=== PATIENT | female | born 1990 | race Caucasian/White ===

== ENCOUNTER 2018-01-13 13:55 | Emergency (ER) | payer MEDICAID ==
[~2018-01-13] VITALS: Ht 157.5 cm; Wt 82.0 kg
[~2018-01-13 13:55] MED LIST: DIAZ2TAB PO; NAPR-679 PO
[2018-01-13 14:12] VITALS: BP 131/85
[2018-01-13 15:03] LABS: BASOPHILS % 0.4 % (0.0-2.0); EOSINOPHILS % 0.7 % (0.0-5.0); HEMATOCRIT. 41.1 % (36.0-48.0); HEMOGLOBIN. 14.1 g/dL (12.0-16.0); LYMPHOCYTES % 33.1 % (20.0-50.0); MEAN CORPUSCULAR VOLUME 84.7 fL (81.0-99.0); MEAN PLATELET VOLUME 8.7 fl (7.4-10.4); MONOCYTES % 3.4 % (2.0-8.0); NEUTROPHILS % 62.4 % (40.0-76.0); PLATELET 292 x1000/uL (130-400); RED BLOOD CELL COUNT 4.86 mill/uL (4.2-5.4); RED CELL DISTRIBUTION WIDTH 14.9 % (11.6-14.6)
[2018-01-13 15:09] LABS: CHLORIDE 103 mEq/L (98-107)
[2018-01-13 16:27] LABS: CLARITY URINE CLOUDY (CLEAR); COLOR URINE DARK YELLOW (YELLOW); KETONES URINE 4+ (NEGATIVE); LEUKOCYTE ESTERASE URINE 2+ (NEGATIVE); NITRITE URINE POSITIVE (NEGATIVE); OCCULT BLOOD URINE 3+ (NEGATIVE); PH URINE 5.5 (4.5-8.0); PROTEIN URINE 1+ (NEGATIVE)
== END 2018-01-13 19:50 | disposition left against medical advice (07) ==
LOC: ER 16:06
DX: N93.9 Abnormal uterine and vaginal bleeding, unspecified (principal)
CPT/HCPCS: 36415; 80053; 81003; 85025; 87086; 99284

== ENCOUNTER 2018-02-13 21:56 | Emergency (ER) | payer MEDICAID ==
[~2018-02-13] VITALS: Ht 157.5 cm; Wt 72.0 kg
[2018-02-14] MEDS ORDERED: CYCLOBENZAPRINE 10MG TABLET PO ONE (02:15)
[2018-02-14] MEDS ORDERED: KETOROLAC 60MG/2ML VIAL IM ONE (02:15)
[2018-02-14 04:00] VITALS: BP 110/57
== END 2018-02-14 04:20 | disposition home or self-care (01) ==
LOC: ER 21:56
DX: S05.11XA Contusion of eyeball and orbital tissues, right eye, initial encounter (principal); E11.9 Type 2 diabetes mellitus without complications; Y08.89XA Assault by other specified means, initial encounter; Y93.89 Activity, other specified; Y92.89 Other specified places as the place of occurrence of the external cause; Y99.8 Other external cause status; Z90.49 Acquired absence of other specified parts of digestive tract
CPT/HCPCS: 99283; J1885; Z7610

== ENCOUNTER 2020-02-21 18:19 | Emergency (ER) | payer MEDICAID ==
[~2020-02-21] VITALS: Ht 157.5 cm; Wt 68.0 kg
[2020-02-21] MEDS ORDERED: SODIUM CHLORIDE 0.9% 1,000 ML IV ONE (20:12)
[2020-02-21] MEDS ORDERED: FAMOTIDINE 20MG/2ML VIAL IV STA (20:12)
[2020-02-21] MEDS ORDERED: ONDANSETRON HCL 4MG/2ML INJ IV STA (20:12)
[2020-02-21 20:53] LABS: BASOPHILS % 0.9 % (0.0-2.0); EOSINOPHILS % 2.4 % (0.0-5.0); HEMOGLOBIN. 14.9 g/dL (12.0-16.0); LYMPHOCYTES % 38.8 % (20.0-50.0); MEAN CORPUSCULAR HEMOGLOBIN 31.5 pg (28.0-32.0); MEAN CORPUSCULAR VOLUME 90.9 fL (81.0-99.0); MEAN PLATELET VOLUME 9.1 fl (7.4-10.4); MONOCYTES % 3.5 % (2.0-8.0); NEUTROPHILS % 54.4 % (40.0-76.0); PLATELET 302 x1000/uL (130-400); RED BLOOD CELL COUNT 4.73 mill/uL (4.2-5.4); RED CELL DISTRIBUTION WIDTH 14.1 % (11.6-14.6)
[2020-02-21 20:55] LABS: CHLORIDE 103 mEq/L (98-107)
[2020-02-21 21:01] LABS: PROTHROMBIN TIME 10.4 sec (9.6-11.0)
[2020-02-21 21:02] LABS: ETHANOL BLOOD < 10 mg/dL
[2020-02-21 21:24] LABS: HCG SCREEN NEGATIVE
[2020-02-21 22:02] VITALS: BP 131/80
[2020-02-21 23:05] LABS: CLARITY URINE CLOUDY (CLEAR); COLOR URINE YELLOW (YELLOW); KETONES URINE 1+ (NEGATIVE); LEUKOCYTE ESTERASE URINE 1+ (NEGATIVE); NITRITE URINE POSITIVE (NEGATIVE); OCCULT BLOOD URINE NEGATIVE (NEGATIVE); PH URINE 5.5 (4.5-8.0); PROTEIN URINE NEGATIVE (NEGATIVE); SPECIFIC GRAVITY URINE 1.023 (1.005-1.030); UROBILINOGEN URINE 0.2 E.U./dL (0.2-1.0)
[2020-02-21 23:38] LABS: *AMPHETAMINES SCREEN URINE NEGATIVE (NEGATIVE); *BARBITURATES SCREEN URINE NEGATIVE (NEGATIVE); *BENZODIAZEPINES SCREEN URINE NEGATIVE (NEGATIVE); *COCAINE SCREEN URINE NEGATIVE (NEGATIVE); METHADONE URINE SCREEN NEGATIVE (NEGATIVE); OPIATES URINE SCREEN NEGATIVE (NEGATIVE)
[2020-02-21 23:39] LABS: CANNABINOID URINE SCREEN NEGATIVE (NEGATIVE); PHENCYCLIDINE URINE SCREEN NEGATIVE (NEGATIVE)
[2020-02-22] MEDS ORDERED: NITROFURANTOIN 100MG M/M CAPSULE PO ONE (00:30)
== END 2020-02-22 01:16 | disposition home or self-care (01) ==
LOC: ER 18:19
DX: N39.0 Urinary tract infection, site not specified (principal); R03.0 Elevated blood-pressure reading, without diagnosis of hypertension
CPT/HCPCS: 36415; 80053; 80305; 80320; 81003; 83690; 84703; 85025; 85610; 96361; 96374; 96375; 99284; J2405; J3490; J7030; G0480

== ENCOUNTER 2020-04-15 23:43 | Emergency (ER) | payer MEDICAID ==
[~2020-04-15] VITALS: Ht 154.9 cm; Wt 76.2 kg
[2020-04-16] MEDS ORDERED: ACETAMINOPHEN 325MG TABLET PO ONE (02:00)
[2020-04-16] MEDS ORDERED: ONDANSETRON 4MG ODT PO ONE (02:00)
[2020-04-16 02:13] LABS: CLARITY URINE CLEAR (CLEAR); COLOR URINE YELLOW (YELLOW); KETONES URINE NEGATIVE (NEGATIVE); LEUKOCYTE ESTERASE URINE NEGATIVE (NEGATIVE); NITRITE URINE NEGATIVE (NEGATIVE); OCCULT BLOOD URINE 3+ (NEGATIVE); PH URINE 8.5 (4.5-8.0); PROTEIN URINE NEGATIVE (NEGATIVE); SPECIFIC GRAVITY URINE 1.022 (1.005-1.030); UROBILINOGEN URINE 0.2 E.U./dL (0.2-1.0)
[2020-04-16 02:13] LABS: BASOPHILS % 0.5 % (0.0-2.0); EOSINOPHILS % 2.2 % (0.0-5.0); HEMATOCRIT. 40.8 % (36.0-48.0); LYMPHOCYTES % 45.4 % (20.0-50.0); MEAN CORPUSCULAR HEMOGLOBIN 30.7 pg (28.0-32.0); MEAN CORPUSCULAR VOLUME 89.9 fL (81.0-99.0); MEAN PLATELET VOLUME 8.4 fl (7.4-10.4); MONOCYTES % 3.7 % (2.0-8.0); NEUTROPHILS % 48.2 % (40.0-76.0); PLATELET 309 x1000/uL (130-400); RED BLOOD CELL COUNT 4.54 mill/uL (4.2-5.4); RED CELL DISTRIBUTION WIDTH 13.8 % (11.6-14.6)
[2020-04-16 02:18] LABS: CHLORIDE 106 mEq/L (98-107)
[2020-04-16 04:11] VITALS: BP 106/64
== END 2020-04-16 04:21 | disposition home or self-care (01) ==
LOC: ER 23:43
DX: N93.8 Other specified abnormal uterine and vaginal bleeding (principal)
CPT/HCPCS: 36415; 76856; 80053; 81003; 81025; 85025; 93005; 99285; Q0162

== ENCOUNTER 2020-06-16 01:19 | Emergency (ER) | payer MEDICAID ==
[~2020-06-16] VITALS: Ht 154.9 cm; Wt 75.0 kg
[2020-06-16 01:23] VITALS: BP 117/82
[2020-06-16] MEDS: DEXAMETHASONE 10 MG/ML VIAL IM ONE (01:50)
[2020-06-16] MEDS: DIPHENHYDRAMINE 25MG CAPSULE PO NR (01:54)
[2020-06-16] MEDS: FAMOTIDINE 20MG TABLET PO NR (01:54)
[2020-06-16] MEDS: LORAZEPAM 1MG TABLET PO NR (01:54)
== END 2020-06-16 02:22 | disposition home or self-care (01) ==
LOC: ER 01:19
DX: T78.49XA Other allergy, initial encounter (principal); X58.XXXA Exposure to other specified factors, initial encounter; L50.9 Urticaria, unspecified; F41.9 Anxiety disorder, unspecified; E11.9 Type 2 diabetes mellitus without complications; Z98.51 Tubal ligation status; Z90.49 Acquired absence of other specified parts of digestive tract
CPT/HCPCS: 81025; 96372; 99284; J1100; Q0163

== ENCOUNTER 2025-05-21 19:45 | Inpatient (IN) | payer BC, MEDICAID ==
[~2025-05-21] VITALS: Ht 154.9 cm; Wt 84.4 kg
[2025-05-21 19:48] VITALS: O2SAT 98
[2025-05-21] MEDS ORDERED: KETOROLAC 15MG/ML VIAL IV ONE (20:45)
[2025-05-21] MEDS: SODIUM CHLORIDE 0.9% 1,000 ML IV ONE (21:27)
[2025-05-21] MEDS: PIPERACILLIN/TAZO 3.375G/50ML 50 ML IV SCH (21:29)
[2025-05-21 21:41] LABS: BASOPHILS % 0.3 % (0.0-2.0); EOSINOPHILS % 0.6 % (0.0-5.0); HEMATOCRIT. 38.8 % (36.0-48.0); HEMOGLOBIN. 12.8 g/dL (12.0-16.0); LYMPHOCYTES % 20.7 % (20.0-50.0); MEAN PLATELET VOLUME 8.6 fl (7.4-10.4); MONOCYTES % 3.2 % (2.0-8.0); NEUTROPHILS % 75.2 % (40.0-76.0); PLATELET 267 x1000/uL (130-400); RED BLOOD CELL COUNT 4.31 mill/uL (4.2-5.4); RED CELL DISTRIBUTION WIDTH 13.8 % (11.6-14.6)
[2025-05-21] MEDS: SODIUM CHLORIDE 0.9% (SEPSIS BOLUS) IV ONE (21:51)
[2025-05-21 21:52] LABS: HCG SCREEN NEGATIVE
[2025-05-21 21:56] LABS: CREATININE 0.7 mg/dL (0.6-1.0); UREA NITROGEN BLOOD 13 mg/dL (9-23)
[2025-05-21 21:58] LABS: ASPARTATE AMINOTRANSFERASE 16 IU/L (<34); BILIRUBIN DIRECT 0.3 mg/dL (<=3.0); BILIRUBIN TOTAL 0.9 mg/dL (0.1-1.0); PROTEIN TOTAL 7.3 g/dL (6.0-8.3)
[2025-05-21] MEDS: VANCOMYCIN 1G PREMIX 200 ML IV SCH (22:02)
[2025-05-21] MEDS: POTASSIUM CHLORIDE 20MEQ/PACKET PO ONE (23:25)
[2025-05-21] MEDS: KETOROLAC 15MG/ML VIAL IV NR (23:26)
[2025-05-21 23:50] LABS: CLARITY URINE CLOUDY (CLEAR); COLOR URINE YELLOW (YELLOW); GLUCOSE URINE NEGATIVE (NEGATIVE); KETONES URINE 2+ (NEGATIVE); LEUKOCYTE ESTERASE URINE NEGATIVE (NEGATIVE); NITRITE URINE NEGATIVE (NEGATIVE); OCCULT BLOOD URINE NEGATIVE (NEGATIVE); PH URINE 6.5 (4.5-8.0); PROTEIN URINE 1+ (NEGATIVE); SPECIFIC GRAVITY URINE 1.051 (1.005-1.030); UROBILINOGEN URINE 1.0 E.U./dL (0.2-1.0)
[2025-05-22 01:15] LABS: SQUAMOUS EPITHELIAL CELL URINE 3+ /lpf (RARE/1+)
[2025-05-22 01:16] LABS: BACTERIA URINE NONE SEEN; RBC URINE 0-2 /hpf (0-2); WBC URINE 0-2 /hpf (0-2)
[2025-05-22 01:49] VITALS: BP 100/55; PULSE 82; RESP 18; TEMP 36.6404
[2025-05-22] MEDS ORDERED: DEXTROSE 50% WATER 50ML SYRINGE IV PRN (04:00)
[2025-05-22] MEDS ORDERED: NALOXONE HCL 0.4MG/ML VIAL IV PRN (04:15)
[2025-05-22] MEDS: VANCOMYCIN 1GM/200ML PMX (BAXTER) IV SCH ×2 (05:35→18:56)
[2025-05-22] MEDS: BLOOD SUGAR DIAGNOSTIC STRIP TEST SCH (06:39)
[2025-05-22 08:00] VITALS: BP 97/58; PULSE 95; RESP 16; TEMP 36.6; O2SAT 99
[2025-05-22] MEDS: INSULIN LISPRO 100 UNITS/ML SUBCUT SCH (08:02)
[2025-05-22] MEDS: PIPERACILLIN/TAZO 3.375G/50ML 50 ML IV SCH (08:03)
[2025-05-22] MEDS ORDERED: ACETAMINOPHEN 325MG TABLET PO PRN (10:15)
[2025-05-22] MEDS ORDERED: IPRATROPIUM/ALBUTEROL 0.5-3(2.5)MG/3ML NEB HHN PRN (10:15)
[2025-05-22] MEDS ORDERED: CLONIDINE 0.1MG TABLET PO PRN (10:15)
[2025-05-22] MEDS: HYDROCODONE/ACETAMINOPHEN 5/325MG TABLET PO PRN (10:42)
[2025-05-22 12:00] VITALS: BP 90/53; PULSE 98; RESP 17; TEMP 36.7; O2SAT 99
[2025-05-22 12:41] LABS: BASOPHILS % 0.1 % (0.0-2.0); EOSINOPHILS % 0.9 % (0.0-5.0); HEMATOCRIT. 32.8 % (36.0-48.0); HEMOGLOBIN. 10.9 g/dL (12.0-16.0); LYMPHOCYTES % 18.0 % (20.0-50.0); MEAN PLATELET VOLUME 9.3 fl (7.4-10.4); MONOCYTES % 3.4 % (2.0-8.0); NEUTROPHILS % 77.6 % (40.0-76.0); PLATELET 234 x1000/uL (130-400); RED BLOOD CELL COUNT 3.60 mill/uL (4.2-5.4); RED CELL DISTRIBUTION WIDTH 14.0 % (11.6-14.6)
[2025-05-22 13:19] LABS: CREATININE 0.6 mg/dL (0.6-1.0); TRIGLYCERIDE 125 mg/dL (0-150); UREA NITROGEN BLOOD 7 mg/dL (9-23)
[2025-05-22 13:20] LABS: LDL CHOLESTEROL 80 mg/dL (5-100)
[2025-05-22 15:59] LABS: *AMPHETAMINES SCREEN URINE NEGATIVE (NEGATIVE); *BARBITURATES SCREEN URINE NEGATIVE (NEGATIVE); *BENZODIAZEPINES SCREEN URINE NEGATIVE (NEGATIVE); *COCAINE SCREEN URINE NEGATIVE (NEGATIVE)
[2025-05-22 16:00] VITALS: BP 91/59; PULSE 73; RESP 16; TEMP 36.5; O2SAT 99
[2025-05-22 16:00] LABS: CANNABINOID URINE SCREEN PRESUMPTIVE POSITIVE (NEGATIVE); ECSTASY MDMA SCREEN URINE NEGATIVE (NEGATIVE); METHADONE URINE SCREEN NEGATIVE (NEGATIVE); OPIATES URINE SCREEN PRESUMPTIVE POSITIVE (NEGATIVE); PHENCYCLIDINE URINE SCREEN NEGATIVE (NEGATIVE)
[2025-05-22 20:00] VITALS: BP 115/59; PULSE 103; RESP 18; TEMP 37.2; O2SAT 96
[2025-05-23] VITALS: BP 106/59; PULSE 91; RESP 18; TEMP 36.4; O2SAT 96
[2025-05-23 03:13] LABS: BASOPHILS % 0.3 % (0.0-2.0); EOSINOPHILS % 1.6 % (0.0-5.0); HEMATOCRIT. 33.1 % (36.0-48.0); HEMOGLOBIN. 11.0 g/dL (12.0-16.0); LYMPHOCYTES % 21.3 % (20.0-50.0); MEAN PLATELET VOLUME 8.4 fl (7.4-10.4); MONOCYTES % 4.2 % (2.0-8.0); NEUTROPHILS % 72.6 % (40.0-76.0); PLATELET 246 x1000/uL (130-400); RED BLOOD CELL COUNT 3.67 mill/uL (4.2-5.4); RED CELL DISTRIBUTION WIDTH 13.8 % (11.6-14.6)
[2025-05-23 03:27] LABS: CREATININE 0.6 mg/dL (0.6-1.0); UREA NITROGEN BLOOD 5 mg/dL (9-23)
[2025-05-23 04:00] VITALS: BP 91/61; PULSE 93; RESP 19; TEMP 36.7; O2SAT 96
[2025-05-23 08:00] VITALS: BP 103/65; PULSE 83; RESP 16; TEMP 36.3; O2SAT 99
[2025-05-23 12:00] VITALS: BP_SYST 117; BP_SYST 96; BP_DIAS 53; BP_DIAS 70; PULSE 90; RESP 16; RESP 17; TEMP 36.4; TEMP 37.7; O2SAT 98; O2SAT 99
[2025-05-23] MEDS: POTASSIUM CHLORIDE 20MEQ TABLET SR PO SCH (13:31)
[2025-05-23] MEDS: POTASSIUM CHLORIDE 20MEQ TABLET SR PO NR (13:32)
[2025-05-23 16:00] VITALS: BP 124/55; PULSE 96; RESP 17; TEMP 36.6; O2SAT 99
[2025-05-23] MEDS: VANCOMYCIN 1.25GM/250ML 250 ML IV SCH (17:57)
[2025-05-23 20:00] VITALS: BP 106/68; PULSE 89; RESP 18; TEMP 36.3; O2SAT 96
[2025-05-23] MEDS: LACTOBACILLUS RHAMNOSUS GG CAP PO SCH (22:44)
[2025-05-23] MEDS: DOCUSATE SODIUM 100MG CAPSULE PO PRN (22:45)
[2025-05-24] VITALS: BP 109/68; PULSE 82; RESP 17; TEMP 36.2; O2SAT 100
[2025-05-24] MEDS: CLINDAMYCIN 600MG PREMIX 50 ML IV SCH (00:51)
[2025-05-24] MEDS: ONDANSETRON HCL 4MG/2ML INJ IV PRN (00:52)
[2025-05-24 04:00] VITALS: BP 99/55; PULSE 85; RESP 19; TEMP 36.4; O2SAT 98
[2025-05-24 07:12] LABS: CREATININE 0.9 mg/dL (0.6-1.0); UREA NITROGEN BLOOD 6 mg/dL (9-23)
[2025-05-24 08:00] VITALS: BP 112/64; PULSE 92; RESP 17; TEMP 36.6; O2SAT 97
[2025-05-24 16:00] VITALS: BP 112/63; PULSE 91; RESP 18; TEMP 36.4; O2SAT 98
[2025-05-24 20:00] VITALS: BP 117/78; PULSE 78; RESP 16; TEMP 36.3; O2SAT 98
[2025-05-25] VITALS: BP 114/79; PULSE 85; RESP 18; TEMP 36.4; O2SAT 99
[2025-05-25 04:00] VITALS: BP 112/81; PULSE 80; RESP 16; TEMP 36.2; O2SAT 98
[2025-05-25 04:05] LABS: BASOPHILS % 0.2 % (0.0-2.0); EOSINOPHILS % 2.8 % (0.0-5.0); HEMATOCRIT. 33.8 % (36.0-48.0); HEMOGLOBIN. 11.5 g/dL (12.0-16.0); LYMPHOCYTES % 21.5 % (20.0-50.0); MEAN PLATELET VOLUME 8.5 fl (7.4-10.4); MONOCYTES % 6.4 % (2.0-8.0); NEUTROPHILS % 69.1 % (40.0-76.0); PLATELET 311 x1000/uL (130-400); RED BLOOD CELL COUNT 3.76 mill/uL (4.2-5.4); RED CELL DISTRIBUTION WIDTH 13.6 % (11.6-14.6)
[2025-05-25 04:17] LABS: CREATININE 1.0 mg/dL (0.6-1.0); UREA NITROGEN BLOOD 6 mg/dL (9-23)
[2025-05-25 08:00] VITALS: BP 102/60; PULSE 83; RESP 18; TEMP 36.4; O2SAT 99
[2025-05-25 12:00] VITALS: BP 113/73; PULSE 85; RESP 18; TEMP 36.6; O2SAT 99
[2025-05-25] MEDS: POTASSIUM CHLORIDE 20MEQ TABLET SR PO SCH (13:56)
[2025-05-25 16:00] VITALS: BP 101/45; PULSE 94; RESP 18; TEMP 36.2; O2SAT 99
[2025-05-25 20:00] VITALS: BP 127/74; PULSE 91; RESP 18; TEMP 37; O2SAT 98
[2025-05-25] MEDS: VANCOMYCIN 750MG/150ML (BAXTER) IV SCH (21:09)
[2025-05-26] VITALS: BP 104/63; PULSE 79; RESP 18; TEMP 36.4; O2SAT 99
[2025-05-26] MEDS: DIAZEPAM 2 MG TABLET PO PRN (00:37)
[2025-05-26 07:06] LABS: BASOPHILS % 0.3 % (0.0-2.0); EOSINOPHILS % 2.4 % (0.0-5.0); HEMATOCRIT. 35.5 % (36.0-48.0); HEMOGLOBIN. 11.9 g/dL (12.0-16.0); LYMPHOCYTES % 23.1 % (20.0-50.0); MEAN PLATELET VOLUME 8.5 fl (7.4-10.4); MONOCYTES % 7.3 % (2.0-8.0); NEUTROPHILS % 66.9 % (40.0-76.0); PLATELET 344 x1000/uL (130-400); RED BLOOD CELL COUNT 3.92 mill/uL (4.2-5.4); RED CELL DISTRIBUTION WIDTH 13.7 % (11.6-14.6)
[2025-05-26 07:28] LABS: UREA NITROGEN BLOOD 6.0 mg/dL (9-23)
[2025-05-26 08:00] VITALS: BP 95/61; PULSE 72; RESP 18; TEMP 36.6; O2SAT 98
[2025-05-26 09:29] LABS: CREATININE 1.4 mg/dL (0.6-1.0)
[2025-05-26 12:00] VITALS: BP 100/60; PULSE 78; RESP 18; TEMP 36.3; O2SAT 100
[2025-05-26 16:00] VITALS: BP 131/90; PULSE 88; RESP 18; TEMP 37.2; O2SAT 98
[2025-05-26 20:00] VITALS: BP 115/65; PULSE 78; RESP 18; TEMP 36.4; O2SAT 98
[2025-05-27] VITALS: BP 103/71; PULSE 75; RESP 18; TEMP 36.5; O2SAT 99
[2025-05-27 06:26] LABS: CREATININE 1.4 mg/dL (0.6-1.0); UREA NITROGEN BLOOD < 5 mg/dL (9-23)
[2025-05-27] MEDS: VANCOMYCIN 500 MG in DEXT 5% WATER 100 ML IV SCH (06:44)
[2025-05-27 08:00] VITALS: BP 104/64; PULSE 69; RESP 18; TEMP 36.4; O2SAT 97
[2025-05-27] MEDS: SODIUM CHLORIDE 0.45% 1,000 ML IV SCH (10:00)
[2025-05-27 13:00] VITALS: BP 113/65; PULSE 74; RESP 18; TEMP 35.8; O2SAT 98
[2025-05-27 16:00] VITALS: BP 112/70; PULSE 81; RESP 18; TEMP 36.4; O2SAT 96
[2025-05-27 20:00] VITALS: BP 122/75; PULSE 78; RESP 18; TEMP 36.6; O2SAT 98
[2025-05-27] MEDS: ACETAMINOPHEN 325MG TABLET PO PRN (20:27)
[2025-05-28] VITALS: BP 100/60; PULSE 81; RESP 18; TEMP 36.9; O2SAT 97
[2025-05-28 08:00] VITALS: BP 114/70; PULSE 70; RESP 16; TEMP 36.2; O2SAT 98
[2025-05-28] MEDS ORDERED: POLYMYXIN B SULFATE 500000 UNITS/VIAL ONE (11:49)
[2025-05-28] MEDS ORDERED: BUPIVACAINE HCL/PF 0.5% (5MG/ML) 10ML ONE (11:50)
[2025-05-28] MEDS ORDERED: LIDOCAINE HCL 1% 10 MG/ML 10ML VIAL ONE ×2 (11:50→18:23)
[2025-05-28] MEDS: IOHEXOL-300 100 ML BOTTLE ONE (16:00)
[2025-05-28] MEDS ORDERED: ONDANSETRON HCL 4MG/2ML INJ ONE (18:22)
[2025-05-28] MEDS ORDERED: DEXAMETHASONE 4MG/ML 1ML VIAL ONE (18:22)
[2025-05-28] MEDS ORDERED: PROPOFOL 200MG/20ML VIAL IV ONE (18:23)
[2025-05-28] MEDS ORDERED: FENTANYL CITRATE/PF 50MCG/ML 2ML VIAL ONE (18:23)
[2025-05-28] MEDS ORDERED: HYDRALAZINE 20MG/ML VIAL IV PRN (19:00)
[2025-05-28] MEDS ORDERED: ALBUTEROL (0.083%) 2.5MG/3ML NEB HHN SCH (19:00)
[2025-05-28] MEDS ORDERED: LABETALOL 5MG/ML 4ML INJ IV PRN (19:00)
[2025-05-28] MEDS ORDERED: ONDANSETRON HCL 4MG/2ML INJ IV PRN (19:00)
[2025-05-28] MEDS ORDERED: HYDROMORPHONE HCL/PF 1MG/ML INJ IV PRN (19:00)
[2025-05-28] MEDS ORDERED: TRAMADOL HCL/ACETAMINOPHEN 37.5/325MG TABLET PO PRN (19:15)
[2025-05-28] MEDS: FENTANYL CITRATE/PF 50MCG/ML 2ML VIAL IV PRN (20:30)
[2025-05-28 21:30] VITALS: BP 116/68; PULSE 75; RESP 15; TEMP 36.2; O2SAT 97
[2025-05-29] VITALS: BP 123/74; PULSE 71; RESP 17; TEMP 36.4; O2SAT 100
[2025-05-29 04:00] VITALS: BP 95/52; PULSE 67; RESP 18; TEMP 36.4; O2SAT 100
[2025-05-29] MEDS ORDERED: SULF1TAB48 MT (12:40)
[2025-05-29] MEDS ORDERED: TOPUD PO (12:40)
[2025-05-29 14:02] VITALS: BP 108/65; PULSE 68; RESP 18; TEMP 97.8
[2025-05-29 16:31] VITALS: TEMP 97.5
[2025-05-29 17:33] LABS: CLARITY URINE CLEAR (CLEAR); COLOR URINE YELLOW (YELLOW); GLUCOSE URINE NEGATIVE (NEGATIVE); KETONES URINE NEGATIVE (NEGATIVE); LEUKOCYTE ESTERASE URINE TRACE (NEGATIVE); NITRITE URINE NEGATIVE (NEGATIVE); OCCULT BLOOD URINE NEGATIVE (NEGATIVE); PH URINE 6.0 (4.5-8.0); PROTEIN URINE NEGATIVE (NEGATIVE); SPECIFIC GRAVITY URINE 1.012 (1.005-1.030); UROBILINOGEN URINE 0.2 E.U./dL (0.2-1.0)
[2025-05-29 17:40] LABS: BACTERIA URINE TRACE; RBC URINE NONE SEEN /hpf (0-2); SQUAMOUS EPITHELIAL CELL URINE 1+ /lpf (RARE/1+)
== END 2025-05-29 17:00 | disposition home or self-care (01) | DRG 872 ==
LOC: ER 19:45 → 7EST 23:52 → EDBEDREQ 23:57 → EDBEDREQTM 23:57 → ENRESERV 05-22 00:34
PROVIDERS: ADMIT Internal Medicine; ATTEND Internal Medicine
PROC: 0Y9C0ZZ Drainage of Right Upper Leg, Open Approach (ICD-10-PCS; principal; 2025-05-28)
DX: A41.9 Sepsis, unspecified organism (principal); L03.113 Cellulitis of right upper limb; L03.115 Cellulitis of right lower limb; L02.415 Cutaneous abscess of right lower limb; D64.9 Anemia, unspecified; E11.9 Type 2 diabetes mellitus without complications; K76.0 Fatty (change of) liver, not elsewhere classified; F41.9 Anxiety disorder, unspecified; E66.9 Obesity, unspecified; R80.9 Proteinuria, unspecified; Z68.35 Body mass index [BMI] 35.0-35.9, adult; Z79.84 Long term (current) use of oral hypoglycemic drugs; Z79.899 Other long term (current) drug therapy
CPT/HCPCS: 36415; 71045; 72192; 73700; 76881; 80048; 80061; 80076; 80202; 80305; 81003; 82962; 83036; 83605; 84145; 84703; 85025; 87070; 87075; 87077; 87186; 96365; 96367; 96375; 97161; 99291; J0665; J1100; J1815; J1885; J2003; J2405; J2543; J2704; J3010; J3373; J3490; J7030; J7060; Q9967

== ENCOUNTER 2025-06-04 15:59 | Emergency (ER) | payer BC ==
[~2025-06-04] VITALS: Ht 154.9 cm; Wt 82.0 kg
[~2025-06-04 15:59] MED LIST changes: +SULF1TAB48 MT; +TOPUD PO
[2025-06-04 16:12] VITALS: O2SAT 99
[2025-06-04 18:16] LABS: BASOPHILS % 1.0 % (0.0-2.0); EOSINOPHILS % 5.7 % (0.0-5.0); HEMATOCRIT. 36.2 % (36.0-48.0); HEMOGLOBIN. 12.2 g/dL (12.0-16.0); LYMPHOCYTES % 37.3 % (20.0-50.0); MEAN PLATELET VOLUME 8.1 fl (7.4-10.4); MONOCYTES % 3.5 % (2.0-8.0); NEUTROPHILS % 52.5 % (40.0-76.0); PLATELET 385 x1000/uL (130-400); RED BLOOD CELL COUNT 4.06 mill/uL (4.2-5.4); RED CELL DISTRIBUTION WIDTH 13.4 % (11.6-14.6)
[2025-06-04 18:28] LABS: CREATININE 1.1 mg/dL (0.6-1.0); UREA NITROGEN BLOOD 13.0 mg/dL (9-23)
[2025-06-04] MEDS ORDERED: ONDA4TAB50 MT (18:47)
[2025-06-04] MEDS ORDERED: METF-1149 MT (18:47)
[2025-06-04 18:51] VITALS: BP 130/82; PULSE 85; RESP 18; TEMP 37; O2SAT 99
== END 2025-06-04 18:53 | disposition home or self-care (01) ==
LOC: ER 15:59
DX: L03.314 Cellulitis of groin (principal); F41.9 Anxiety disorder, unspecified; E11.9 Type 2 diabetes mellitus without complications; Z90.49 Acquired absence of other specified parts of digestive tract; Z79.84 Long term (current) use of oral hypoglycemic drugs; Z76.0 Encounter for issue of repeat prescription; Z98.51 Tubal ligation status; Z79.899 Other long term (current) drug therapy
CPT/HCPCS: 80048; 85025; 36415; 99283; Z7610